=== PATIENT | female | born 1945 | race Caucasian/White ===

== ENCOUNTER 2022-09-14 19:10 | Inpatient (IN) | payer MEDICARE ==
[~2022-09-14] VITALS: Ht 172.7 cm; Wt 65.3 kg
--- NOTE | 2022-09-14 19:52 | NUR ---
BIB PA FROM [facility] FOR POOR PO INTAKE AND FAILURE TO THRIVE. PT A/OX1. TOLERATING OA 5LPM N/C WITH NO RESP DISTRESS. CONNECTED PT TO POX AND MONITOR. SAFETY MEASURES IN PLACE.
--- NOTE | 2022-09-14 20:15 | NUR ---
RAC #20G S/L BLOOD AND COVID ANTIGEN SWAB COLLECTED AND SENT TO LAB
--- NOTE | 2022-09-14 20:18 | NUR ---
EMT AT PT'S BEDSIDE FOR EKG
[2022-09-14 20:30] LABS: BASOPHILS % (AUTO) 0.4 % (0.0-2.0); EOSINOPHILS % (AUTO) 4.9 % (0.0-6.0); HEMATOCRIT 39 % (33-45); HEMOGLOBIN 11.9 g/dL (11.5-14.8); LYMPHOCYTES # (AUTO) 1.8 K/uL (0.8-4.8); LYMPHOCYTES % (AUTO) 22.5 % (20.0-44.0); MEAN CORPUSCULAR HGB CONC 31 g/dl (31.0-36.0); MEAN CORPUSCULAR VOLUME 79 fL (82-100); MONOCYTES # (AUTO) 0.7 K/uL (0.1-1.30); MONOCYTES % (AUTO) 8.6 % (2.0-12.0); NEUTROPHILS # (AUTO) 5.1 K/uL (1.8-8.9); NEUTROPHILS % (AUTO) 63.6 % (43.0-81.0); PLATELET COUNT (AUTO) 452 K/uL (150-450); RED BLOOD CELL COUNT(AUTO) 4.93 MIL/uL (4.0-5.2)
[2022-09-14] MEDS ORDERED: IV NS 0.9% 1,000 ML BAG IV ONE (20:30)
--- NOTE | 2022-09-14 20:34 | NUR ---
URINE COLLECTED AND SENT TO LAB
[2022-09-14 20:40] LABS: CALCIUM, SERUM 9.8 mg/dL (8.5-10.1); CARBON DIOXIDE 27 mmol/L (21-32); CHLORIDE 103 mmol/L (98-107); CREATININE 1.4 mg/dL (0.6-1.3); GLUCOSE 122 mg/dL (74-106); SODIUM SERUM 138 mmol/L (136-145); UREA NITROGEN, BLOOD 57 mg/dL (7-18)
[2022-09-14 20:46] LABS: ALANINE AMINOTRANSFERASE 38 U/L (12-78); ALBUMIN 3.3 g/dL (3.4-5.0); ALKALINE PHOSPHATASE 110 U/L (46-116); ASPARTATE AMINOTRANSFERASE 40 U/L (15-37); BILIRUBIN,DIRECT 0.1 mg/dL (0.0-0.2); BILIRUBIN,TOTAL 0.3 mg/dL (0.2-1.0); TOTAL PROTEIN, SERUM 8.1 g/dL (6.4-8.2)
[2022-09-14 20:53] LABS: THYROID STIMULATING HORMONE 1.826 uIU/mL (0.358-3.74)
--- NOTE | 2022-09-14 20:55 | NUR ---
PT TO CT VIA CLAY
[2022-09-14 21:07] LABS: BILIRUBIN,URINE NEGATIVE (NEGATIVE); COLOR,URINE YELLOW (YELLOW); LEUKOCYTE ESTERASE ,URINE NEGATIVE (NEGATIVE); NITRITE, URINE NEGATIVE (NEGATIVE); PROTEIN,URINE NEGATIVE (NEGATIVE); UGLUCOSE NEGATIVE (NEGATIVE); UROBILINOGEN,URINE 0.2 EU/dL (0.2)
--- NOTE | 2022-09-14 21:11 | NUR ---
PT RETRUEND TO ER BED [address]
--- NOTE | 2022-09-14 22:03 | NUR ---
REPORT GIVEN TO FRANCESCO Botello RN FOR CLEO
--- NOTE | 2022-09-14 22:03 | NUR ---
JACOB OLIVO DRILL PRESS HAND AT PT'S BEDSIDE FOR EVAL
[2022-09-14] MEDS ORDERED: MAG HYDROX/AL HYDROX/SIMETH 30 ML UDC PO PRN (22:30)
[2022-09-14] MEDS ORDERED: ONDANSETRON HCL/PF 4 MG/2 ML VIAL IVP PRN (22:30)
[2022-09-14] MEDS ORDERED: Z GUARD REMEDY 4 OZ OINT TP PRN (22:30)
[2022-09-14] MEDS ORDERED: ZOLPIDEM TARTRATE 5 MG TABLET PO PRN (22:30)
[2022-09-14] MEDS ORDERED: MAGNESIUM HYDROXIDE 30 ML UDC PO PRN (22:30)
[2022-09-14] MEDS ORDERED: ACETAMINOPHEN 325 MG TABLET PO PRN (22:30)
--- NOTE | 2022-09-14 22:54 | NUR ---
PT TRANSFERRING TO [facility]. VSS.
[2022-09-14 23:00] VITALS: BP 151/61
--- NOTE | 2022-09-14 23:00 | NUR ---
RN RECEIVING PATIENT FROM ER NOTE PATIENT RECEIVED FROM ER. PATIENT STABLE. A/OX0, NON-VERBAL BUT ABLE TO FOLLOW DIRECTIONS. VS WNL NO S/S OF DISTRESS, BREATHING WITHOUT DIFFICULTY ON 3L NC (TITRATED DOWN FROM 5L). RAC #20 INTACT AND PATENT. PATIENT WAS ORIENTED TO THE UNIT, ALBEIT THE PATIENT IS UNABLE TO UNDERSTAND. CALL CM GIVEN TO PATIENT, AND INSTRUCTED ON ITS USE. PATIENT'S BELONGINGS SHEET ACCOUNTED FOR, PLACED IN CHART. SAFETY MEASURES IN PLACE: BED LOCKED AND AT LOWEST POSITION, RAILS UP X2, CALL CM WITHIN REACH. WILL CONTINUE TO MONITOR PATIENT.
[2022-09-15 00:41] VITALS: BP 151/61
[2022-09-15] MEDS: IV NS 0.9% 1,000 ML IV PRN ×2 (03:43→13:47)
--- NOTE | 2022-09-15 06:45 | NUR ---
RN CLOSING NOTE PATIENT AWAKE IN BED. NO S/S OF DISTRESS, BREATHING WITHOUT DIFFICULTY ON 3L NC W/ HUMIDIFIER. RAC #20 INTACT AND PATENT W/ NS 100ML/HR. SAFETY MEASURES IN PLACE: BED LOCKED AND AT LOWEST POSITION, RAILS UP X2, CALL CM WITHIN REACH. WILL ENDORSE TO NEXT SHIFT FOR CLEO.
[2022-09-15 07:00] VITALS: BP 148/95
--- NOTE | 2022-09-15 07:20 | NUR ---
RN OPENING NOTE PATIENT AWAKE IN BED. NO S/S OF DISTRESS, BREATHING WITHOUT DIFFICULTY ON 3L NC W/ HUMIDIFIER. RAC #20 INTACT AND PATENT W/ NS 100ML/HR. PATIENT IS NPO AT THIS TIME AWAITING SWALLOW EVALUATION. SAFETY MEASURES IN PLACE: BED LOCKED AND AT LOWEST POSITION, RAILS UP X2, CALL CM WITHIN REACH. WILL CONTINUE TO MONITOR THE PATIENT
[2022-09-15 07:22] LABS: CALCIUM, SERUM 9.4 mg/dL (8.5-10.1); CARBON DIOXIDE 27 mmol/L (21-32); CHLORIDE 105 mmol/L (98-107); CREATININE 1.1 mg/dL (0.6-1.3); GLUCOSE 103 mg/dL (74-106); MAGNESIUM 2.2 mg/dL (1.8-2.4); PHOSPHORUS 3.6 mg/dL (2.5-4.9); POTASSIUM 4.6 mmol/L (3.5-5.1); SODIUM SERUM 140 mmol/L (136-145); UREA NITROGEN, BLOOD 49 mg/dL (7-18)
[2022-09-15 07:23] LABS: BASOPHILS % (AUTO) 0.3 % (0.0-2.0); EOSINOPHILS % (AUTO) 4.1 % (0.0-6.0); HEMATOCRIT 35 % (33-45); HEMOGLOBIN 11.2 g/dL (11.5-14.8); LYMPHOCYTES # (AUTO) 1.7 K/uL (0.8-4.8); MEAN CORPUSCULAR HGB CONC 32 g/dl (31.0-36.0); MEAN CORPUSCULAR VOLUME 77 fL (82-100); MONOCYTES # (AUTO) 0.7 K/uL (0.1-1.30); MONOCYTES % (AUTO) 7.6 % (2.0-12.0); NEUTROPHILS # (AUTO) 6.2 K/uL (1.8-8.9); PLATELET COUNT (AUTO) 428 K/uL (150-450); RED BLOOD CELL COUNT(AUTO) 4.57 MIL/uL (4.0-5.2)
--- NOTE | 2022-09-15 08:19 | NUR ---
WOUND CARE CONSULT: PT PRESENTS WITH SCARRING TO SACRUM AND BUTTOCKS WELL SWELLING WITH THICKENED SKIN TO BILATERAL LOWER LEGS AND FEET, PRESENT ON ADMISSION. DISCUSED SKIN PROTECTION WITH NURSING STAFF. MD IN AGREEMENT WITH PLAN OF CARE.
[2022-09-15] MEDS ORDERED: HYDR-4209 PO (11:57)
[2022-09-15] MEDS ORDERED: ACET-868 PO (11:57)
[2022-09-15] MEDS ORDERED: DONE5TAB34 PO (11:57)
[2022-09-15] MEDS ORDERED: SPIR25TA6 PO (11:57)
[2022-09-15] MEDS ORDERED: CYAN-51 PO (11:57)
[2022-09-15] MEDS ORDERED: FOLI0.4T6 PO (11:57)
[2022-09-15] MEDS ORDERED: THIA100T70 PO (11:57)
[2022-09-15] MEDS ORDERED: DOCU-141 PO (11:57)
[2022-09-15] MEDS ORDERED: ASCO-352 PO (11:57)
[2022-09-15] MEDS ORDERED: METO25TA20 PO (11:57)
[2022-09-15] MEDS ORDERED: PANT40TA2 PO (11:57)
[2022-09-15] MEDS ORDERED: ZINC50TA69 PO (11:57)
[2022-09-15] MEDS ORDERED: LISI10TA29 PO (11:57)
[2022-09-15] MEDS ORDERED: MULT-447 PO (11:57)
[2022-09-15] MEDS ORDERED: CHOL100043 PO (11:57)
[2022-09-15] MEDS: ASCORBIC ACID 500 MG TABLET PO SCH (18:15)
[2022-09-15] MEDS: DOCUSATE SODIUM 100 MG CAPSULE PO SCH (18:15)
[2022-09-15] MEDS: METOPROLOL TARTRATE 25 MG TABLET PO SCH (18:15)
[2022-09-15 20:00] VITALS: BP 153/71
--- NOTE | 2022-09-15 20:13 | NUR ---
RN CLOSING NOTE PATIENT AWAKE IN BED. NO S/S OF DISTRESS, BREATHING WITHOUT DIFFICULTY ON 3L NC W/ HUMIDIFIER. RAC #20 INTACT AND PATENT W/ NS 100ML/HR. PATIENT PASSED SWALLOW EVAL, HOWEVER WITH ASPIRATION PRECAUTION ON FEEDING AND SWALLOWING DUE TO DELAY RESPONSES OBSERVED. SAFETY MEASURES IN PLACE: BED LOCKED AND AT LOWEST POSITION, RAILS UP X2, CALL CM WITHIN REACH. WILL ENDORSE TO PM SHIFT NURSE FOR CLEO.
--- NOTE | 2022-09-15 20:20 | NUR ---
RN OPENING NOTE RECEIVED PATIENT IN BED AWAKE. A/OX1 WITH EPISODES OF CONFUSION BUT PLEASANT. IV ACCESS ON RIGHT AC #20 NOTED TO BE PATENT AND INTACT INFUSING 0.9% NS @ 100CC/HR. PATIENT ON O2 @3LPM TOLERATING WELL WITH NO SOB AND BREATHING EVENLY. SAFETY MEASURE IN PLACED: BED LOCKED AND IN LOWEST POSITION, SIDE RAILS UP X3, HOB ELEVATED, CALL LIGHT AND BEDSIDE TABLE WITHIN PATIENT REACH.
--- NOTE | 2022-09-16 01:20 | NUR ---
RN NOTE CHANGING PATIENT WITH DIRECTOR TRANSLATIONAL NOTICED SCANTING OF FRESH BLOOD ON PATIENTS VAGINA. APPLIED PAD TO MONITOR. CHARGE NURSE MADE AWAKE.
[2022-09-16 06:28] LABS: BASOPHILS % (AUTO) 0.3 % (0.0-2.0); EOSINOPHILS % (AUTO) 3.8 % (0.0-6.0); HEMATOCRIT 39 % (33-45); HEMOGLOBIN 12.2 g/dL (11.5-14.8); LYMPHOCYTES # (AUTO) 1.8 K/uL (0.8-4.8); LYMPHOCYTES % (AUTO) 22.3 % (20.0-44.0); MEAN CORPUSCULAR HGB CONC 31 g/dl (31.0-36.0); MEAN CORPUSCULAR VOLUME 78 fL (82-100); MONOCYTES # (AUTO) 0.7 K/uL (0.1-1.30); MONOCYTES % (AUTO) 8.1 % (2.0-12.0); NEUTROPHILS # (AUTO) 5.4 K/uL (1.8-8.9); NEUTROPHILS % (AUTO) 65.5 % (43.0-81.0); PLATELET COUNT (AUTO) 413 K/uL (150-450); RED BLOOD CELL COUNT(AUTO) 4.99 MIL/uL (4.0-5.2); WHITE BLOOD COUNT (AUTO) 8.2 K/uL (4.3-11.0)
[2022-09-16 06:53] LABS: CALCIUM, SERUM 9.3 mg/dL (8.5-10.1); PHOSPHORUS 3.3 mg/dL (2.5-4.9); POTASSIUM 4.6 mmol/L (3.5-5.1)
--- NOTE | 2022-09-16 06:54 | NUR ---
RN CLOSING NOTE PATIENT IN BED AWAKE. A/OX1 WITH EPISODES OF CONFUSION BUT PLEASANT. IV ACCESS ON RIGHT AC #20 NOTED TO BE PATENT AND INTACT INFUSING 0.9% NS @ 100CC/HR. PATIENT ON O2 @3LPM TOLERATING WELL WITH NO SOB AND BREATHING EVENLY. PATIENT IS REPOSITIONED Q2HR THROUGH OUT THE SHIFT. MADE SURE PATIENT IS COMFORTABLE, ALL NEEDS ARE MET. SAFETY MEASURE IN PLACED: BED LOCKED AND IN LOWEST POSITION, SIDE RAILS UP X3, HOB ELEVATED, CALL LIGHT AND BEDSIDE TABLE WITHIN PATIENT REACH. ENDORSED TO NEXT SHIFT NURSE FOR CONTINUITY OF CARE.
[2022-09-16] MEDS ORDERED: PANTOPRAZOLE 40 MG TABLET.DR PO SCH (07:30)
--- NOTE | 2022-09-16 08:08 | NUR ---
RN OPENING NOTE PATIENT IN BED AWAKE A/OX1 WITH EPISODES OF CONFUSION BUT PLEASANT. IV ACCESS ON RIGHT AC #20 NOTED TO BE PATENT AND INTACT INFUSING 0.9% NS @ 100CC/HR. PATIENT ON O2 @3LPM TOLERATING WELL WITH NO SOB AND BREATHING EVENLY. SAFETY MEASURE IN PLACED: BED LOCKED AND IN LOWEST POSITION, SIDE RAILS UP X3, HOB ELEVATED, CALL LIGHT AND BEDSIDE TABLE WITHIN PATIENT REACH. WILL CONTINUE TO MONITOR.
[2022-09-16] MEDS ORDERED: CHOLECALCIFEROL (VITAMIN D 3) 400 UNIT TABLET PO SCH (09:00)
[2022-09-16] MEDS ORDERED: CYANOCOBALAMIN 500 MCG TABLET PO SCH (09:00)
[2022-09-16] MEDS ORDERED: MULTIVITAMINS,THERAGRAN 1 UDTAB TABLET PO SCH (09:00)
[2022-09-16] MEDS ORDERED: FOLIC ACID 1 MG TABLET PO SCH (09:00)
[2022-09-16] MEDS ORDERED: ZINC SULFATE 220 MG CAPSULE PO SCH (09:00)
[2022-09-16] MEDS ORDERED: THIAMINE HCL 100 MG TABLET PO SCH (09:00)
[2022-09-16] MEDS ORDERED: DONEPEZIL 5 MG TABLET PO SCH (09:00)
[2022-09-16] MEDS ORDERED: LISINOPRIL (10MG) 10 MG TABLET PO SCH (09:00)
[2022-09-16] MEDS: DOCUSATE SODIUM 100 MG CAPSULE PO SCH (09:01)
[2022-09-16] MEDS: ASCORBIC ACID 500 MG TABLET PO SCH (09:02)
[2022-09-16] MEDS: METOPROLOL TARTRATE 25 MG TABLET PO SCH (09:12)
[2022-09-16 09:48] VITALS: BP 99/52
[2022-09-16] MEDS ORDERED: LISI2.5T2 PO (10:59)
--- NOTE | 2022-09-16 14:38 | NUR ---
DISCHARGED NOTES PATIENT DISCHARGED TO [facility] IN STABLE CONDITION, A/OX0. ON RA, TOLERATING WELL. VITALS TAKEN, STABLE AND RECORD. DISCHARGED INSTRUCTIONS/ EDUCATION RELAYED TO [facility] ALL BELONGINGS ACCOUNTED TO THE PATIENT. PICTURES TAKEN OF SKIN ISSUES. IV ACCESS REMOVED ASEPTICALLY. PATIENT LEFT THE UNIT ACCOMPANIED BY AMBULANCE. DISCHARGED.
== END 2022-09-16 13:35 | DRG 640 ==
LOC: ER 19:34 → MED 21:36
PROVIDERS: ADMIT Nurse Practitioner Acute Care; ATTEND Nurse Practitioner Acute Care
DX: R62.7 Adult failure to thrive (principal); G93.41 Metabolic encephalopathy; N17.0 Acute kidney failure with tubular necrosis; E44.1 Mild protein-calorie malnutrition; E86.0 Dehydration; E88.09 Other disorders of plasma-protein metabolism, not elsewhere classified; F03.90 Unspecified dementia, unspecified severity, without behavioral disturbance, psychotic disturbance, mood disturbance, and anxiety; I11.0 Hypertensive heart disease with heart failure; I50.9 Heart failure, unspecified; R13.10 Dysphagia, unspecified; Z86.73 Personal history of transient ischemic attack (TIA), and cerebral infarction without residual deficits; K21.9 Gastro-esophageal reflux disease without esophagitis; M19.90 Unspecified osteoarthritis, unspecified site; Z88.0 Allergy status to penicillin; R63.4 Abnormal weight loss; F99 Mental disorder, not otherwise specified; Z20.822 Contact with and (suspected) exposure to COVID-19
CPT/HCPCS: 36415; 70450-TC; 71045-TC; 76770-TC; 80048-TC; 80076-TC; 83605-TC; 83735-TC; 84100-TC; 84443-TC; 84484-TC; 85025-TC; 85730-TC; 87081-TC; 92526; 92611-TC; 97112-TC; 97116-TC; 97530-TC; A4223; C9803; G0378; J7030